=== PATIENT | female | born 1955 | race Caucasian/White ===

== ENCOUNTER 2023-08-26 12:33 | Inpatient (IN) | payer OTHER ==
[~2023-08-26] VITALS: Ht 137.2 cm; Wt 86.2 kg
[~2023-08-26 12:33] MED LIST: ACET-9528 PO; AMLO5TAB8 PO; CYCL5TAB PO; FURO-572 PO; LOSA-272 PO; POTA8TAB17 PO; SIMV-30 PO; [UNRECOGNIZED DRUG - CODE] PO
[2023-08-26 13:16] VITALS: BP 115/64; PULSE 95; RESP 18; TEMP 98.3; O2SAT 93
[2023-08-26] MEDS ORDERED: MELO-174 PO (17:25)
[2023-08-26] MEDS ORDERED: PANT40EC PO (17:25)
[2023-08-26 17:27] LABS: BASOPHILS # (AUTO) 0.1 K/uL (0.00-0.22); BASOPHILS % (AUTO) 0.7 % (0.0-2.0); EOSINOPHILS # (AUTO) 0.8 K/uL (0-0.4); EOSINOPHILS % (AUTO) 8.6 % (0.0-4.0); HEMATOCRIT 30.6 % (36-48); HEMOGLOBIN 9.9 g/dL (12.0-16.0); LYMPHOCYTES # (AUTO) 2.5 K/uL (2.5-16.5); LYMPHOCYTES % (AUTO) 27.2 % (20.5-51.1); MEAN CORPUSCULAR HEMOGLOBIN 24 pg (27-31); MEAN CORPUSCULAR HGB CONC 33 g/dL (33-37); MEAN CORPUSCULAR VOLUME 74.1 fL (80-94); MONOCYTES # (AUTO) 0.7 K/uL (0.8-1.0); MONOCYTES % (AUTO) 7.4 % (1.7-9.3); NEUTROPHILS # (AUTO) 5.1 K/uL (1.8-7.7); NEUTROPHILS % (AUTO) 56.1 % (42.2-75.2); PLATELET COUNT (AUTO) 395 K/uL (140-450); RED BLOOD CELL COUNT(AUTO) 4.13 MIL/uL (4.20-5.40); RED CELL DISTRIBUTION WIDTH 18.7 % (11.6-13.7); WHITE BLOOD COUNT (AUTO) 9.1 K/uL (4.8-10.8)
[2023-08-26] MEDS ORDERED: VANCOMYCIN 1,000 MG VIAL ONE (17:27)
[2023-08-26 17:36] LABS: ANION GAP 14.9 (8-16); CALCIUM 9.1 mg/dL (8.5-10.1); CARBON DIOXIDE 23.3 mmol/L (21-32); POTASSIUM 4.2 mmol/L (3.5-5.1)
[2023-08-26 17:42] LABS: ALBUMIN 2.8 g/dL (3.4-5.0); BILIRUBIN,DIRECT 0.1 mg/dL (0.0-0.3); TOTAL BILIRUBIN 0.3 mg/dL (0.0-1.0); TOTAL PROTEIN, SERUM 8.2 g/dL (6.4-8.2)
[2023-08-26] MEDS: VANCOMYCIN 1,000 MG in DEXTROSE 5% 250 ML IV ONE (17:46)
[2023-08-26 17:49] LABS: LACTIC ACID 1.1 mmol/L (0.4-2.0)
[2023-08-26] MEDS ORDERED: cefTRIAXone 1,000 MG VIAL ONE (21:55)
[2023-08-26] MEDS ORDERED: VANCOMYCIN PER PHARMACY MC PRN (23:05)
[2023-08-26] MEDS ORDERED: MORPHINE SULFATE 2 MG/ML SYR IVP PRN (23:05)
[2023-08-26] MEDS ORDERED: NACL 0.9% 1,000 ML IV SCH (23:05)
[2023-08-26] MEDS ORDERED: ONDANSETRON 4 MG/2 ML VIAL IVP PRN (23:05)
[2023-08-26] MEDS ORDERED: ACETAMINOPHEN 325 MG TAB PO PRN (23:05)
[2023-08-27 01:55] VITALS: PULSE 92; RESP 18; O2SAT 97
[2023-08-27] MEDS: HYDROcodone/APAP 5/325 MG 1 TAB TAB PO PRN (02:42)
[2023-08-27 04:00] VITALS: BP 110/65; PULSE 85; RESP 18; TEMP 97.4; O2SAT 95
[2023-08-27 07:03] LABS: BASOPHILS # (AUTO) 0.1 K/uL (0.00-0.22); BASOPHILS % (AUTO) 0.7 % (0.0-2.0); EOSINOPHILS # (AUTO) 0.6 K/uL (0-0.4); EOSINOPHILS % (AUTO) 7.7 % (0.0-4.0); HEMATOCRIT 29.9 % (36-48); HEMOGLOBIN 9.6 g/dL (12.0-16.0); LYMPHOCYTES # (AUTO) 2.1 K/uL (2.5-16.5); LYMPHOCYTES % (AUTO) 26.6 % (20.5-51.1); MEAN CORPUSCULAR HEMOGLOBIN 24 pg (27-31); MEAN CORPUSCULAR HGB CONC 32 g/dL (33-37); MEAN CORPUSCULAR VOLUME 73.3 fL (80-94); MONOCYTES # (AUTO) 0.6 K/uL (0.8-1.0); NEUTROPHILS # (AUTO) 4.6 K/uL (1.8-7.7); PLATELET COUNT (AUTO) 392 K/uL (140-450); RED BLOOD CELL COUNT(AUTO) 4.07 MIL/uL (4.20-5.40); RED CELL DISTRIBUTION WIDTH 19.2 % (11.6-13.7); WHITE BLOOD COUNT (AUTO) 7.9 K/uL (4.8-10.8)
[2023-08-27 07:58] LABS: ALBUMIN 2.5 g/dL (3.4-5.0); ANION GAP 16.2 (8-16); CALCIUM 9.2 mg/dL (8.5-10.1); CARBON DIOXIDE 24.1 mmol/L (21-32); CREATININE 1.3 mg/dL (0.6-1.3); MAGNESIUM 2.4 mg/dL (1.8-2.4); POTASSIUM 4.3 mmol/L (3.5-5.1); TOTAL BILIRUBIN 0.3 mg/dL (0.0-1.0); TOTAL PROTEIN, SERUM 7.4 g/dL (6.4-8.2)
[2023-08-27 08:09] VITALS: PULSE 89; RESP 20; O2SAT 99
[2023-08-27] MEDS: ENOXAPARIN 30 MG/0.3 ML SYR SUBQ SCH (08:47)
[2023-08-27] MEDS: VANCOMYCIN 750 MG in DEXTROSE 5% 250 ML IV SCH (12:00)
== END 2023-08-27 14:55 | disposition left against medical advice (07) | DRG 383 ==
LOC: MED 12:33 → MTU 08-27 00:37
PROVIDERS: ADMIT Internal Medicine; ATTEND Internal Medicine
DX: L03.116 Cellulitis of left lower limb (principal); N17.0 Acute kidney failure with tubular necrosis; E44.0 Moderate protein-calorie malnutrition; E87.1 Hypo-osmolality and hyponatremia; E78.00 Pure hypercholesterolemia, unspecified; I10 Essential (primary) hypertension; Z53.29 Procedure and treatment not carried out because of patient's decision for other reasons; Z88.5 Allergy status to narcotic agent; Z68.42 Body mass index [BMI] 45.0-49.9, adult
CPT/HCPCS: 36415; 73562; 80048; 80053; 80076; 83605; 83735; 85025; 87040; 87081; 93971; 96365; 96375; 99285; J0690; J0696; J1650; J3370; J7060; Q0092